=== PATIENT | female | born 1980 | race Caucasian/White ===

== ENCOUNTER 2016-12-19 20:33 | Emergency (ER) | payer SELFPAY ==
[2016-12-20] MEDS ORDERED: OXYCODONE-ACETAMINOPHEN 5-325 MG TABLET PO ONE (01:53)
[2016-12-20] MEDS ORDERED: PROMETHAZINE HCL 25 MG TABLET PO ONE (01:53)
[2016-12-20] MEDS ORDERED: LIDOCAINE 1% INJ-PF (10 MG/ML) 30 ML SDV INJ ONE (01:54)
--- NOTE | 2016-12-20 01:55 | ER Document Report ---
ED Skin Rash/Insect Bite/Abscs - General Chief Complaint: Abscess Stated Complaint: ABSCESS/LEFT HIP Time seen by provider: 01:50 Notes: Patient is a 36-year-old female that comes emergency department for chief complaint of a possible abscess in the left lower abdomen in the fold, symptoms started about a week ago, she noticed it became hardened, tender, red, she has been applying warm compresses and has enlargement. She denies fever, she denies history of diabetes, she has had frequent abscesses in the past. Past medical history of fibromyalgia. TRAVEL OUTSIDE OF THE [place] IN LAST 30 DAYS: No - Related Data Allergies/Adverse Reactions: No Known Allergies Allergy (Verified 12/19/16 21:33) Past Medical History - General Information source: Patient - Social History Smoking Status: Never Smoker Frequency of alcohol use: None Drug Abuse: None Lives with: Family Family History: Reviewed & Not Pertinent Endocrine Medical History: Denies: Hx Diabetes Mellitus Type 1, Hx Diabetes Mellitus Type 2 Renal/ Medical History: Denies: Hx Peritoneal Dialysis Musculoskeltal Medical History: Reports Hx Fibromyalgia Surgical Hx: Negative - Immunizations Immunizations up to date: Yes Hx Diphtheria, Pertussis, Tetanus Vaccination: Yes Review of Systems - Review of Systems Constitutional: No symptoms reported EENT: No symptoms reported Cardiovascular: No symptoms reported Respiratory: No symptoms reported Gastrointestinal: No symptoms reported Genitourinary: No symptoms reported Female Genitourinary: No symptoms reported Musculoskeletal: No symptoms reported Skin: See HPI Hematologic/Lymphatic: No symptoms reported Neurological/Psychological: No symptoms reported Physical Exam - Vital signs Vitals: Temp Pulse Resp BP Pulse Ox 98.1 F 96 17 138/63 H 98 12/19/16 21:33 12/19/16 21:33 12/19/16 21:33 12/19/16 21:33 12/19/16 21:33 Interpretation: Normal - General General appearance: Appears well, Alert In distress: None - HEENT Head: Normocephalic, Atraumatic Eyes: Normal Pupils: PERRL - Respiratory Respiratory status: No respiratory distress Chest status: Nontender Breath sounds: Normal Chest palpation: Normal - Cardiovascular Rhythm: Regular Heart sounds: Normal auscultation Murmur: No - Abdominal Inspection: Normal Distension: No distension Bowel sounds: Normal Tenderness: Nontender Organomegaly: No organomegaly - Back Back: Normal, Nontender - Extremities General upper extremity: Normal inspection, Nontender, Normal color, Normal ROM , Normal temperature General lower extremity: Normal inspection, Nontender, Normal color, Normal ROM , Normal temperature, Normal weight bearing. No: Kimo's sign - Neurological Neuro grossly intact: Yes Cognition: Normal Orientation: AAOx4 Chari Coma Scale Eye Opening: Spontaneous Chari Coma Scale Verbal: Oriented Chari Coma Scale Motor: Obeys Commands [place] Coma Scale Total: 15 Speech: Normal Motor strength normal: LUE, RUE, LLE, RLE Sensory: Normal - Psychological Associated symptoms: Normal affect, Normal mood - Skin Skin Temperature: Warm Skin Moisture: Dry Skin Color: Normal Skin irregularity: Abscess - indurated circular area in the fold of the pannus of the left lower abdomal wall. mild surrounding cellulitis Course - Re-evaluation Re-evalutation: Large abscess drained, irrigated, packed, dressed. Mild surrounding cellulitis, placing on antibiotics. Because of large abscess recommended return or followup in 2 days for repacking, patient and state they have done packing before and ask for it, discussed return precautions in details, patient states understanding and agreement. - Vital Signs Vital signs: Temp Pulse Resp BP Pulse Ox 97.7 F 74 18 105/60 99 12/20/16 02:18 12/20/16 03:21 12/20/16 03:21 12/20/16 03:21 12/20/16 03:21 Procedures - Incision and Drainage left lower abdominal wall Type: Single Anesthetic type: 1% Lidocaine mL's of anesthetic: 8 Blade size: 11 I&D procedure: Sterile dressing applied, Other - surgical cleanser Incision Method: Incision made by scalpel Amount/type of drainage: large amount of purulent drainage, minimal blood Notes: Abscess cleaned with surgical cleanser, incision made with scalpel after 1% lidocaine used for anesthesia, explored, very large amount of purulent material expressed at about 30 mL, packed, dressed Discharge - Discharge Clinical Impression: Abscess Condition: Stable Disposition: HOME, SELF-CARE Additional Instructions: The abscess has been drained and packed, packing needs to be changed in 2 days, I recommend following up with primary care or returning for this unless you do this at home. Clean with soap and water. Keep absorbing dressing over the area. Take doxycycline antibiotic, take pain medication if needed. Return immediately for any concerning or worsening symptoms including fever, spreading redness, etc. Prescriptions: Doxycycline Hyclate 100 mg PO BID #14 capsule Oxycodone HCl/Acetaminophen [Percocet 5-325 mg Tablet] 1 - 2 tab PO Q4H PRN #20 tablet PRN Reason: Forms: Return to Work Referrals: RUFINO OSEGUERA MD [Primary Care Provider] - Follow up as needed
[2016-12-20] MEDS ORDERED: DOXYCYCLINE HYCLATE 100 MG TABLET PO ONE (02:52)
[2016-12-20 03:22] VITALS: BP 105/60
== END 2016-12-20 03:21 | disposition home or self-care (01) ==
LOC: ER 20:33
PROC: 0H97XZZ Drainage of Abdomen Skin, External Approach (ICD-10-PCS; principal; 2016-12-19)
DX: L02.416 Cutaneous abscess of left lower limb (principal)
CPT/HCPCS: 99283; 10060; J3490

== ENCOUNTER 2016-12-22 13:05 | Emergency (ER) | payer SELFPAY ==
[2016-12-22 13:15] VITALS: BP 172/97
--- NOTE | 2016-12-22 13:39 | ER Document Report ---
HPI - HPI Patient complains to provider of: abscess recheck Onset: Other Pain Level: 3 Context: Patient presents emergency department with request for abscess recheck. Patient was evaluated in the emergency department December 19, she received an I & D of an abscess to her left lower abdomen. She reports the site is feeling better not as painful. She is here to have the packing removed. Denies other symptoms such as fever vomiting diarrhea. Patient does report that she usually runs a low temperature of 97 and for her 98.2 is and elevated temperature. Patient is taking her medications as prescribed. Associated Symptoms: None Exacerbated by: Denies Relieved by: Denies Similar symptoms previously: Yes Recently seen / treated by doctor: Yes - REPRODUCTIVE Reproductive: DENIES: : - DERM Skin Color: Normal Past Medical History - General Information source: Patient - Social History Smoking Status: Unknown if Ever Smoked Cigarette use (# per day): No Frequency of alcohol use: None Drug Abuse: None Lives with: Family Family History: Reviewed & Not Pertinent Patient has suicidal ideation: No Patient has homicidal ideation: No Endocrine Medical History: Denies: Hx Diabetes Mellitus Type 1, Hx Diabetes Mellitus Type 2 Renal/ Medical History: Denies: Hx Peritoneal Dialysis Musculoskeltal Medical History: Reports Hx Fibromyalgia Past Surgical History: Reports: Hx Cholecystectomy - Immunizations Immunizations up to date: Yes Hx Diphtheria, Pertussis, Tetanus Vaccination: Yes Vertical Provider Document - CONSTITUTIONAL Agree With Documented VS: Yes Exam Limitations: No Limitations General Appearance: WD/WN, Mild Distress - winces when packing removed - INFECTION CONTROL TRAVEL OUTSIDE OF THE [place] IN LAST 30 DAYS: No - HEENT HEENT: Atraumatic, Normocephalic - NECK Neck: Normal Inspection, Supple - RESPIRATORY Respiratory: Breath Sounds Normal, No Respiratory Distress O2 Sat by Pulse Oximetry: 97 - CARDIOVASCULAR Cardiovascular: Regular Rate - GI/ABDOMEN Gastrointestinal: Abdomen Soft - obese - MUSCULOSKELETAL/EXTREMETIES Musculoskeletal/Extremeties: ROBERTO NGUYEN - NEURO Level of Consciousness: Awake, Alert, Appropriate Motor/Sensory: No Motor Deficit - DERM Integumentary: Warm, Dry Adult Front & Back Diagram: 1 - abscess rechecked, packing removed, dried drainage noted to drsnaa, no new drainage noted,. erythema in a square noted around her abscess site, looks like a reaction to dressing Pt reports she has very sensitive skin. Pt reports she did change the tape. No induration, no drainage from abscess site Course - Re-evaluation Re-evalutation: 12/22/16 14:04 packing removed and replaced. Patient tolerated procedure well although she she did complain of pain during the repacking. Patient drove herself here. She was instructed to monitor site, fu with dr oseguera this week. She was also instructed to continue medications as prescribed and return here if the abscess looks like it was getting worse with s/s of increased erythema induration pain. She verbalized understanding to all instructions. - Vital Signs Vital signs: Temp Pulse Resp BP Pulse Ox 98.2 F 100 22 H 172/97 H 97 12/22/16 13:14 12/22/16 13:14 12/22/16 13:14 12/22/16 13:14 12/22/16 13:14 Discharge - Discharge Clinical Impression: Abscess re-check, Elevated blood pressure reading Condition: Stable Disposition: HOME, SELF-CARE Instructions: [facility]cess ([facility]) Additional Instructions: *You have been treated for an abscess recheck *Take your antibiotics and pain medication as prescribed *Monitor the site for signs of increasing infection such as increasing pain, redness, swelling, warmth *keep the area clean *Follow up with a primary care provider within 3 days for recheck *Return to ED for signs of increasing infection, worsening condition, changes, needs Monitor your blood pressure. Your blood pressure was elevated today. This may be because you were anxious, in pain or because you need medication. It is important to follow up with your primary care provider for full evaluation. Forms: Elevated Blood Pressure Referrals: RUFINO OSEGUERA MD [Primary Care Provider] - Follow up in 3-5 days
== END 2016-12-22 14:00 | disposition home or self-care (01) ==
LOC: ER 13:05
DX: L02.211 Cutaneous abscess of abdominal wall (principal); R03.0 Elevated blood-pressure reading, without diagnosis of hypertension; Z90.49 Acquired absence of other specified parts of digestive tract
CPT/HCPCS: 99282

== ENCOUNTER 2018-03-09 11:04 | Emergency (ER) | payer SELFPAY ==
[2018-03-09 11:10] VITALS: BP 146/84
[2018-03-09] MEDS ORDERED: NAPROXEN 250 MG TABLET PO ONE (12:50)
[2018-03-09] MEDS ORDERED: PREDNISONE 20 MG TABLET PO ONE (12:50)
--- NOTE | 2018-03-09 12:52 | ER Document Report ---
ED General - General Chief Complaint: Shoulder Pain Stated Complaint: SHOULDER PAIN Time Seen by Provider: 03/09/18 12:12 Mode of Arrival: Ambulatory Information source: Patient Notes: 37-year-old female presents with 1 week duration of right shoulder pain. Patient notes that the pain has been worsening gradually over the past week is associated with pain at the end of her clavicle going down her right arm. Patient notes it hurts to move up the arm. Patient denies any significant trauma but admits to the pain worsening when awakening from sleep TRAVEL OUTSIDE OF THE [place] IN LAST 30 DAYS: No - HPI Onset: Last week Onset/Duration: Persistent Quality of pain: Sharp Severity: Mild Pain Level: 1 Associated symptoms: Body/muscle aches Exacerbated by: Movement Relieved by: Denies Similar symptoms previously: No Recently seen / treated by doctor: No - Related Data Allergies/Adverse Reactions: No Known Allergies Allergy (Verified 03/09/18 11:05) Past Medical History - Social History Smoking Status: Current Every Day Smoker Cigarette use (# per day): Yes Chew tobacco use (# tins/day): No Smoking Education Provided: No Family History: Reviewed & Not Pertinent Endocrine Medical History: Denies: Hx Diabetes Mellitus Type 1, Hx Diabetes Mellitus Type 2 Renal/ Medical History: Denies: Hx Peritoneal Dialysis Musculoskeletal Medical History: Reports Hx Fibromyalgia Past Surgical History: Reports: Hx Cholecystectomy - Immunizations Immunizations up to date: Yes Hx Diphtheria, Pertussis, Tetanus Vaccination: Yes Review of Systems - Review of Systems Notes: REVIEW OF SYSTEMS: CONSTITUTIONAL : Denies fever, chills, or sweats. Denies recent illness. EENT: Denies eye, ear, throat, or mouth pain or symptoms. Denies nasal or sinus congestion or discharge. Denies throat, tongue, or mouth swelling or difficulty swallowing. CARDIOVASCULAR: Denies chest pain. Denies palpitations or racing or irregular heart beat. Denies ankle edema. RESPIRATORY: Denies cough, cold, or chest congestion. Denies shortness of breath, difficulty breathing, or wheezing. GASTROINTESTINAL: Denies abdominal pain or distention. Denies nausea, vomiting , or diarrhea. Denies blood in vomitus, stools, or per rectum. Denies black, tarry stools. Denies constipation. GENITOURINARY: Denies difficulty urinating, painful urination, burning, frequency, blood in urine, or discharge. FEMALE GENITOURINARY: Denies vaginal bleeding, heavy or abnormal periods, irregular periods. Denies vaginal discharge or odor. MUSCULOSKELETAL: Right shoulder pain SKIN: Denies rash, lesions or sores. HEMATOLOGIC : Denies easy bruising or bleeding. LYMPHATIC: Denies swollen, enlarged glands. NEUROLOGICAL: Denies confusion or altered mental status. Denies passing out or loss of consciousness. Denies dizziness or lightheadedness. Denies headache. Denies weakness or paralysis or loss of use of either side. Denies problems with gait or speech. Denies sensory loss, numbness, or tingling. Denies seizures. PSYCHIATRIC: Denies anxiety or stress. Denies depression, suicidal ideation, or homicidal ideation. ALL OTHER SYSTEMS REVIEWED AND NEGATIVE. PHYSICAL EXAMINATION: GENERAL: Well-appearing, well-nourished and in no acute distress. HEAD: Atraumatic, normocephalic. EYES: Pupils equal round and reactive to light, extraocular movements intact, conjunctiva are normal. ENT: Nares patent, oropharynx clear without exudates. Moist mucous membranes. NECK: Normal range of motion, supple without lymphadenopathy LUNGS: Breath sounds clear to auscultation bilaterally and equal. No wheezes rales or rhonchi. HEART: Regular rate and rhythm without murmurs ABDOMEN: Soft, nontender, nondistended abdomen. No guarding, no rebound. No masses appreciated. Female : deferred Musculoskeletal: Tenderness upon palpation of the right brachial plexus region. Patient has range of motion tenderness cannot lift greater than 40 before she begins having pain NEUROLOGICAL: Cranial nerves grossly intact. Normal speech, normal gait. Normal sensory, motor exams PSYCH: Normal mood, normal affect. SKIN: Warm, Dry, normal turgor, no rashes or lesions noted. Dictation was performed using [employer] voice recognition software Physical Exam - Vital signs Vitals: Temp Pulse Resp BP Pulse Ox 97.8 F 91 20 146/84 H 98 03/09/18 11:09 03/09/18 11:09 03/09/18 11:09 03/09/18 11:09 03/09/18 11:09 Course - Re-evaluation Re-evalutation: 03/09/18 13:20 Patient's presentation most consistent with impingement of the right brachial plexus, this appears to be muscular skeletal nature, there is no signs of a mass or trauma that would cause this, I will treat him symptomatically with strict follow-up with orthopedics - Vital Signs Vital signs: Temp Pulse Resp BP Pulse Ox 97.8 F 91 20 146/84 H 98 03/09/18 11:09 03/09/18 11:09 03/09/18 11:09 03/09/18 11:09 03/09/18 11:09 Discharge - Discharge Clinical Impression: Brachial plexus dysfunction Condition: Stable Disposition: HOME, SELF-CARE Instructions: Arm Pain, Nonspecific ([facility]) Prescriptions: Naproxen 500 mg PO BID #20 tablet Prednisone [Deltasone 20 mg Tablet] 3 tab PO DAILY 4 Days tablet Forms: Return to Work Referrals: RUFINO OSEGUERA MD [Primary Care Provider] - Follow up as needed
== END 2018-03-09 13:08 | disposition home or self-care (01) ==
LOC: ER 11:04
DX: G54.0 Brachial plexus disorders (principal); M25.511 Pain in right shoulder; F17.210 Nicotine dependence, cigarettes, uncomplicated
CPT/HCPCS: 99283; J7512

== ENCOUNTER 2018-04-04 16:06 | Emergency (ER) | payer SELFPAY ==
[2018-04-04] MEDS ORDERED: HYDROCODONE/ACETAMINOPHEN 5-325 MG TABLET PO ONE (17:36)
[2018-04-04] MEDS ORDERED: SULFAMETHOXAZOLE/TRIMETHOPRIM 800-160 MG TABLET PO ONE (17:36)
[2018-04-04] MEDS ORDERED: LIDOCAINE 1% INJ-PF (10 MG/ML) 30 ML SDV INJ ONE (17:36)
--- NOTE | 2018-04-04 17:38 | ER Document Report ---
ED General - General Chief Complaint: Abscess Stated Complaint: SKIN ISSUE Time Seen by Provider: 04/04/18 17:30 Mode of Arrival: Medic Information source: Patient TRAVEL OUTSIDE OF THE [place] IN LAST 30 DAYS: No - HPI Notes: Patient is a 37-year-old female history of recurrent skin abscess and hidradenitis presents to the emergency department with report of 3 abscesses underneath her breast areas 2 on the left one on the right. She states the one in the right seems to continuously drain and then fill back up. She denies any fever chills. There is no history of diabetes. She states she only has a history of fibromyalgia. The patient denies any chest pain or abdominal pain or nausea or vomiting or numbness or paresthesia. No other skin abscesses otherwise. - Related Data Allergies/Adverse Reactions: No Known Allergies Allergy (Verified 04/04/18 16:07) Past Medical History - General Information source: Patient - Social History Smoking Status: Current Every Day Smoker Frequency of alcohol use: None Drug Abuse: None Lives with: Family Family History: Reviewed & Not Pertinent Endocrine Medical History: Denies: Hx Diabetes Mellitus Type 1, Hx Diabetes Mellitus Type 2 Renal/ Medical History: Denies: Hx Peritoneal Dialysis Musculoskeletal Medical History: Reports Hx Fibromyalgia Past Surgical History: Reports: Hx Cholecystectomy - Immunizations Immunizations up to date: Yes Hx Diphtheria, Pertussis, Tetanus Vaccination: Yes Review of Systems - Review of Systems -: Yes All other systems reviewed and negative Physical Exam - Vital signs Vitals: Temp Pulse Resp BP Pulse Ox 98.3 F 85 16 113/69 98 04/04/18 16:16 04/04/18 16:16 04/04/18 16:16 04/04/18 16:16 04/04/18 16:16 - Notes Notes: In general no apparent distress. HEENT atraumatic normocephalic conjunctiva clear Cardiovascular RRR without m/g/r. Lungs clear to auscultation Examination of the chest shows 2 abscesses on the left underneath the left breast one on the right underneath the right breast. Induration less than 2 cm for each abscess. No evidence for obvious breast tissue involvement or breast tissue mass. Abdomen obese nontender. Course - Re-evaluation Re-evalutation: 04/04/18 18:27 Following discussion of risks, alternatives, and benefits, the patient agreed to incision and drainage of the abscesses. On the left one abscess was more cutaneous with a slight exophytic nature suggesting chronicity which was consistent with the patient's reported history. This abscess was cleaned with Betadine and the top was unroofed and cut off using scissors which allowed drainage from several locations and then this was irrigated. The other abscess under the left breast was Betadine prepped and cleaned with Shur-Clens, then was infiltrated with lidocaine 1% 1 cc, then a #11 scalpel was used to incise the wound and purulent material was sent for culture. The abscess under the right breast was Betadine prepped and cleaned with Shur-Clens and was infiltrated with lidocaine 1% 1 cc then the #11 scalpel was used to incise the wound and purulent material was obtained. All wounds were thoroughly irrigated with saline and then 1 abscess on the left and one abscess on the right were gently packed with quarter inch iodoform gauze. Patient tolerated this well. Complications none. Blood loss negligible. 04/04/18 18:33 We will cover with Bactrim antibiotic and culture was ordered which is pending. - Vital Signs Vital signs: Temp Pulse Resp BP Pulse Ox 98.3 F 85 16 113/69 98 04/04/18 16:16 04/04/18 16:16 04/04/18 16:16 04/04/18 16:16 04/04/18 16:16 Discharge - Discharge Clinical Impression: Abscess Condition: Stable Disposition: HOME, SELF-CARE Instructions: Abscess ([facility]), Oral Narcotic Medication ([facility]), Post Incision and Drainage, Trimethoprim-Sulfa ([facility]) Additional Instructions: Wound packing out in 2 days. Apply warm compresses to the wounds. Follow-up with local surgeon for further evaluation and care. Return to the emergency department in case of fever, severe swelling. Prescriptions: Hydrocodone/Acetaminophen [[place] 5-325 Tablet] 1 each PO Q4HP PRN #20 tablet PRN Reason: Sulfamethoxazole/Trimethoprim [Bactrim Ds Tablet] 2 each PO BID #40 tablet Referrals: RUFINO OSEGUERA MD [Primary Care Provider] - Follow up as needed [facility] [Provider Group] - Follow up as needed
[2018-04-04 19:05] VITALS: BP 135/78
== END 2018-04-04 19:03 | disposition home or self-care (01) ==
LOC: ER 16:06
DX: N61.1 Abscess of the breast and nipple (principal); F17.200 Nicotine dependence, unspecified, uncomplicated
CPT/HCPCS: 99283; 87070; 87205; 87075; 87077; 10061; A6266

== ENCOUNTER 2018-11-05 20:27 | Emergency (ER) | payer SELFPAY ==
--- NOTE | 2018-11-05 22:18 | ER Document Report ---
HPI - HPI Time Seen by Provider: 11/05/18 21:35 Pain Level: 5 Notes: Patient is a 37-year-old female who presents to the emergency department complaining of possible abscess underneath her right breast that started developing a week ago, but swelling worsened over the last couple days. Patient states that she does get these often but not [place] in this area. Patient does not have any history of MRSA, but has had incision and drainage performed in the past. Denies drug allergies. Denies IV drug abuse. No other concerns or complaints. She is eating and drinking without difficulty. She is urinating normally. Denies any headache, fever, URI, sore throat, chest pain, palpitations, syncope, cough, shortness of breath, wheeze, dyspnea, abdominal pain, nausea/vomiting/diarrhea, urinary retention, dysuria, hematuria. - ROS Systems Reviewed and Negative: Yes All other systems reviewed and negative - CONSTITUTIONAL Constitutional: DENIES: Fever - REPRODUCTIVE Reproductive: DENIES: : Past Medical History - Social History Smoking Status: Current Every Day Smoker Chew tobacco use (# tins/day): No Frequency of alcohol use: None Drug Abuse: None Family History: Reviewed & Not Pertinent Patient has suicidal ideation: No Patient has homicidal ideation: No Endocrine Medical History: Denies: Hx Diabetes Mellitus Type 1, Hx Diabetes Mellitus Type 2 Renal/ Medical History: Denies: Hx Peritoneal Dialysis Musculoskeletal Medical History: Reports Hx Fibromyalgia Past Surgical History: Reports: Hx Cholecystectomy - Immunizations Immunizations up to date: Yes Hx Diphtheria, Pertussis, Tetanus Vaccination: Yes Vertical Provider Document - CONSTITUTIONAL Agree With Documented VS: Yes Notes: PHYSICAL EXAMINATION: I was accompanied by female nurseMichelle GENERAL: Well-appearing, well-nourished and in no acute distress. Obese. Chest wall: there is a fluctuant, erythema, warm, tender area noted under the rt breast. No streaks or purulence noted. Indurated area approx [id number] LUNGS: Breath sounds clear to auscultation bilaterally and equal. No wheezes rales or rhonchi. HEART: Regular rate and rhythm without murmurs, rubs, gallops. ABDOMEN: Soft, nontender, nondistended abdomen. No guarding, no rebound. No masses appreciated. Normal bowel sounds present. No CVA tenderness bilaterally. Musculoskeletal: FROM to passive/active. Strength 5+/5. Extremities: No cyanosis, clubbing, or edema b/l. Peripheral pulses 2+. Capillary refill less than 3 seconds. NEUROLOGICAL: Normal speech, normal gait. Normal sensory, motor exams PSYCH: Normal mood, normal affect. SKIN: see above. - INFECTION CONTROL TRAVEL OUTSIDE OF THE [place] IN LAST 30 DAYS: No Course - Re-evaluation Re-evalutation: 11/05/18 Patient is an afebrile, well-hydrated, 37-year-old female who presents to the emergency department with an abscess to her right lower chest wall under the rt breast needing incision and drainage. Vitals are acceptable without significant tachycardia, tachypnea, or hypoxia. PE is otherwise unremarkable. Patient is nontoxic-appearing and is tolerating p.o. without difficulty. Incision and drainage was performed without any complications and packing was placed. Wound dressing was placed and wound instructions reviewed. Wound culture was obtained. No further labs or imaging warranted. Low suspicion for any sepsis, meningitis, SJS, nec fasc, or other systemic emergent condition at this time. Patient to monitor symptoms for any acute changes and seek medical attention if so. Rx for keflex/bactrim and first doses provided today. Recheck with your PCM in 2-3 days. Consider consult with the general surgeon. Return to the ED with any worsening/concerning symptoms as reviewed. Patient is in agreement. - Vital Signs Vital signs: Temp Pulse Resp BP Pulse Ox 98.5 F 96 20 153/85 H 97 11/05/18 20:50 11/05/18 20:50 11/05/18 20:50 11/05/18 20:50 11/05/18 20:50 Procedures - Incision and Drainage Rt lower chest wall, under breast Time completed: 23:05 - accompanied by female coworkerDesiree Type: Simple Anesthetic type: 1% Lidocaine mL's of anesthetic: 10 Blade size: 11 I&D procedure: Iodoform packing placed, Sterile dressing applied, Other - chlorhexadine/saline Incision Method: Incision made by scalpel Amount/type of drainage: abundant purulent Discharge - Discharge Clinical Impression: Abscess Condition: Stable Disposition: HOME, SELF-CARE Instructions: Abscess ([facility]), Cephalexin ([facility]), Post Incision and Drainage, Trimethoprim-Sulfa ([facility]) Additional Instructions: Do not shower or bathe for 24 hours. After 24 hours you may shower but no submersion of the wound under water. Keep the original dressing on the wound for 24 hours unless the drainage soaks through. Change the dressing daily thereafter and use a small amount of triple antibiotic ointment over the open wound. See your PCM in 2-3 days for recheck and continue direction for wound packing. Monitor for any signs of worsening pain or redness, streaks, and/or fever. Return to the ED if noticing any of the above symptoms or as needed. Take medications as directed. Prescriptions: Cephalexin Monohydrate [Keflex 500 mg Capsule] 500 mg PO TID #30 capsule Sulfamethoxazole/Trimethoprim [Bactrim Ds Tablet] 1 each PO BID #20 tablet Forms: Elevated Blood Pressure, Smoking Cessation Education Referrals: REGULO AGUDELO MD [ACTIVE STAFF] - Follow up as needed
[2018-11-05] MEDS ORDERED: SULFAMETHOXAZOLE/TRIMETHOPRIM 800-160 MG TABLET PO ONE (22:23)
[2018-11-05] MEDS ORDERED: CEPHALEXIN 500 MG CAPSULE PO ONE (22:23)
[2018-11-05] MEDS ORDERED: LIDOCAINE 1% INJ-PF (10 MG/ML) 30 ML SDV INJ ONE (22:23)
[2018-11-05] MEDS ORDERED: HYDROCODONE/ACETAMINOPHEN 5-325 MG (6 TAB/ER DISP) PO PRN (23:12)
[2018-11-05 23:47] VITALS: BP 127/74
== END 2018-11-05 23:47 | disposition home or self-care (01) ==
LOC: ER 20:27
DX: N61.1 Abscess of the breast and nipple (principal); F17.200 Nicotine dependence, unspecified, uncomplicated; Z90.49 Acquired absence of other specified parts of digestive tract
CPT/HCPCS: 87070; 87075; 87077; 87205; 99283

== ENCOUNTER 2018-11-09 12:51 | Emergency (ER) | payer SELFPAY ==
[2018-11-09] MEDS ORDERED: OXYCODONE-ACETAMINOPHEN 5-325 MG TABLET PO ONE (14:54)
--- NOTE | 2018-11-09 15:01 | ER Document Report ---
ED Suture/Wound Recheck - General Chief Complaint: Wound Recheck Stated Complaint: WOUND RECHECK Time Seen by Provider: 11/09/18 14:54 Mode of Arrival: Ambulatory Information source: Patient Notes: 37-year-old female presented to ED for removal of packing and repacking to abscess under the right breast. She had an I&D completed on 11/05/2018 and was instructed to return to the ED for changing of the packing. Patient is alert oriented respirations regular and unlabored speaking in full sentences and walks with a even steady gait. TRAVEL OUTSIDE OF THE [place] IN LAST 30 DAYS: No - HPI Previous ED treatment: I&D of abscess Antibiotics given previously: Prescription Quality of pain: Sharp Severity: Moderate Pain Level: 4 Symptoms since procedure: Drainage Exacerbated by: Movement Relieved by: Denies - Related Data Allergies/Adverse Reactions: No Known Allergies Allergy (Verified 11/09/18 12:58) Past Medical History - General Information source: Patient - Social History Smoking Status: Current Every Day Smoker Cigarette use (# per day): Yes - Half pack a day Smoking Education Provided: Yes Frequency of alcohol use: None Drug Abuse: None Lives with: Family Family History: Reviewed & Not Pertinent Patient has suicidal ideation: No Patient has homicidal ideation: No - Past Medical History Cardiac Medical History: Reports: None Pulmonary Medical History: Reports: None EENT Medical History: Reports: None Neurological Medical History: Reports: None Endocrine Medical History: Reports: None Renal/ Medical History: Reports: None Malignancy Medical History: Reports: None GI Medical History: Reports: None Musculoskeletal Medical History: Reports Hx Fibromyalgia Skin Medical History: Reports Hx Cellulitis Psychiatric Medical History: Reports: None Traumatic Medical History: Reports: None Infectious Medical History: Reports: None Past Surgical History: Reports: Hx Cholecystectomy - Immunizations Immunizations up to date: Yes Hx Diphtheria, Pertussis, Tetanus Vaccination: Yes Review of Systems - Review of Systems Constitutional: No symptoms reported EENT: No symptoms reported Cardiovascular: No symptoms reported Respiratory: No symptoms reported Gastrointestinal: No symptoms reported Genitourinary: No symptoms reported Female Genitourinary: No symptoms reported Musculoskeletal: No symptoms reported Skin: Other - Abscess needs packing removed and replaced Hematologic/Lymphatic: No symptoms reported Neurological/Psychological: No symptoms reported -: Yes All other systems reviewed and negative Physical Exam - Vital signs Vitals: Temp Pulse Resp BP Pulse Ox 98.1 F 83 18 147/88 H 100 11/09/18 13:08 11/09/18 13:08 11/09/18 13:08 11/09/18 13:08 11/09/18 13:08 Interpretation: Normal - General General appearance: Appears well, Alert - HEENT Head: Normocephalic, Atraumatic Eyes: Normal Pupils: PERRL - Respiratory Respiratory status: No respiratory distress Chest status: Nontender Breath sounds: Normal Chest palpation: Normal - Cardiovascular Rhythm: Regular Heart sounds: Normal auscultation Murmur: No - Abdominal Inspection: Normal Distension: No distension Bowel sounds: Normal Tenderness: Nontender Organomegaly: No organomegaly - Back Back: Normal, Nontender - Extremities General upper extremity: Normal inspection, Nontender, Normal color, Normal ROM, Normal temperature General lower extremity: Normal inspection, Nontender, Normal color, Normal ROM, Normal temperature, Normal weight bearing. No: Kimo's sign - Neurological Neuro grossly intact: Yes Cognition: Normal Orientation: AAOx4 Chari Coma Scale Eye Opening: Spontaneous Donner Coma Scale Verbal: Oriented Donner Coma Scale Motor: Obeys Commands Chari Coma Scale Total: 15 Speech: Normal Motor strength normal: LUE, RUE, LLE, RLE Sensory: Normal - Psychological Associated symptoms: Normal affect, Normal mood - Skin Skin Temperature: Warm Skin Moisture: Dry Skin Color: Normal Skin irregularity: Abscess - Needs packing removed and replaced under right breast Character of irregularity: negative: Erythematous Irregularity with: Tenderness. negative: Inflammation Course - Re-evaluation Re-evalutation: 11/09/18 21:45 Packing was removed and replaced with quarter inch iodoform gauze. Wound was irrigated with 50 cc of normal saline before repacking. Patient was treated with Percocet 2 pills of 5/325 for the pain and discharged home with . Patient was instructed to replace the packing in 3 days or return to the ED for repacking. states he knows how to do the repacking and he can do it at home. - Vital Signs Vital signs: Temp Pulse Resp BP Pulse Ox 98.1 F 73 16 137/92 H 98 11/09/18 13:08 11/09/18 15:19 11/09/18 15:19 11/09/18 15:19 11/09/18 15:19 Discharge - Discharge Clinical Impression: abscess recheck for packing Condition: Stable Disposition: HOME, SELF-CARE Instructions: Family Physicians / Practices Additional Instructions: ABSCESS: You have an abscess (boil). This a pus-forming infection, usually due to staph. Some boils may be left to drain on their own, but most require lancing. From the time the tender lump first appears, it may be three or four days before the abscess is ready to lior. Local heat and rest help at this stage of treatment. An antibiotic may prevent spread of the infection. Once the abscess is opened, packing may be placed into it. This is done so pus is not sealed inside by premature closure of the cavity. The packing will be removed at your follow-up visit or you may be advised to remove it yourself at home. Sometimes this packing must be replaced a few times during healing. The wound will heal with surprisingly little scar. Depending on the size and location of an abscess, healing can take one to four weeks. You may shower and wash the area around the incision site two or three times a day. Antibiotics may be prescribed, but are usually not necessary after an abscess has been drained. If you develop fever, chills, worsening pain, or increasing swelling in the area, call the doctor or return immediately. ORAL NARCOTIC MEDICATION: You have been given 2 percocet 5/325 in the ed for pain control. This medication is a narcotic. It's best taken with food, as nausea can result if taken on an empty stomach. Don't operate machinery or drive within six hours of taking this medication. Do not combine this medicine with alcohol, or with any medication which can cause sedation (such as cold tablets or sleeping pills) unless you get permission from the physician. Narcotics tend to cause constipation. If possible, drink plenty of fluids and eat a diet high in fiber and fruits. Be aware that this needs to go against your amount of Tylenol for the day as this is the equivalent of 2 Tylenol in these 2 Percocets Acetaminophen Acetaminophen may be taken for pain relief or fever control. It's much safer than aspirin, offering a wider range of "safe" dosages. It is safe during . Some brand names are Tylenol, Panadol, Datril, Anacin 3, Tempra, and Liquiprin. Acetaminophen can be repeated every four hours. The following are maximum recommended dosages: WEIGHT Dose Drops Elixir Chewable(80mg) (LBS.) drprs=droppers tsp=teaspoon 6 40 mg .4 ml (1/2) 6-11 80 mg .8 ml (full) 1/2 tsp 1 tab 12-16 120 mg 1 1/2 drprs 3/4 tsp 1 1/2 tabs 17-23 160 mg 2 drprs 1 tsp 2 tabs 24-30 240 mg 3 drprs 1 1/2 tsp 3 tabs 30-35 320 mg 2 tsp 4 tabs 36-41 360 mg 2 1/4 tsp 4 1/2 tabs 42-47 400 mg 2 1/2 tsp 5 tabs 48-53 480 mg 3 tsp 6 tabs 54-59 520 mg 3 1/4 tsp 6 1/2 tabs 60-64 560 mg 3 1/2 tsp 7 tabs 65-70 600 mg 3 3/4 tsp 7 1/2 tabs 71-76 640 mg 4 tsp 8 tabs 77-82 720 mg 4 1/2 tsp 9 tabs 83-88 800 mg 5 tsp 10 tabs >89 pounds or adults 650 mg to 900 mg Acetaminophen can be repeated every four hours. Maximum daily dose not to exceed 4000 mg. These maximum recommended dosages are slightly higher than the dosages written on the product container, but these dosages are very safe and well below the toxic dosage for acetaminophen. Ibuprofen Ibuprofen is an excellent, safe drug for pain control. In addition, it has potent antiinflammatory effects which are beneficial, especially in the treatment of injuries, arthritis, or tendonitis. It's best to take ibuprofen with food. Persons with ulcer disease or allergy to aspirin should notify their physician of this before taking ibuprofen. Take the medication exactly as prescribed. Don't take additional doses unless instructed to do so by your doctor. If you develop wheezing, shortness of breath, hives, faintness, stomach pain, vomiting, or dark black stools, ret urn for re-evaluation at once. FOLLOW-UP CARE: Most simple abscesses will not require a follow up visit. If you had packing placed in the abscess, remove it as instructed by the physician. If you have been referred to a physician for follow-up care, call the physicians office for an appointment as you were instructed or within the next two days. If you experience worsening or a significant change in your symptoms, return to the Emergency Department at any time for re-evaluation. Forms: Elevated Blood Pressure
[2018-11-09 15:19] VITALS: BP 137/92
== END 2018-11-09 15:29 | disposition home or self-care (01) ==
LOC: ER 12:51
DX: Z48.01 Encounter for change or removal of surgical wound dressing (principal); N61.1 Abscess of the breast and nipple; F17.210 Nicotine dependence, cigarettes, uncomplicated
CPT/HCPCS: 99282

== ENCOUNTER 2019-05-06 11:18 | Emergency (ER) | payer SELFPAY ==
--- NOTE | 2019-05-06 13:22 | RADIOLOGY REPORT (SQ) ---
EXAM DESCRIPTION: U/S EXTREMITY NONVASCULAR LTD COMPLETED DATE/TIME: 05/06/2019 1:10 pm REASON FOR STUDY: RIGHT SIDE EVAL FOR ABSCESS COMPARISON: None. TECHNIQUE: Dynamic and static grayscale images acquired of the localized site of clinical concern an d recorded on PACS. Additional selected color Doppler and spectral images recorded. SITE OF CONCERN: Right trunk/abdominal wall LIMITATIONS: None. FINDINGS: Targeted ultrasound examination of the patient identified area of abnormality about the ri ght trunk/abdominal wall reveals a superficial, complex subcutaneous fluid collection measuring 2.7 x 1.7 x 1.5 cm concerning for abscess. IMPRESSION: Targeted ultrasound examination of the patient identified area of abnormality about the right trunk/abdominal wall reveals a superficial, complex subcutaneous fluid collection measuring 2.7 x 1.7 x 1.5 cm concerning for abscess. TECHNICAL DOCUMENTATION: JOB ID: [id number] [employer]- All Rights Reserved Reading location - IP/workstation name: [id number]
--- NOTE | 2019-05-06 13:34 | ER Document Report ---
HPI - HPI Patient complains to provider of: abscess Time Seen by Provider: 05/06/19 11:43 Onset: Other - 2 weeks Onset/Duration: Persistent Severity: Mild Pain Level: 1 Context: This 38-year-old female presents emergency department with complaints of abscess on the right side of her trunk. Patient reports symptoms for the past 2 weeks. Reports she is had abscesses in the past. Reports she is placed heating pad on the area warm packs without relief of symptoms. Denies history of MRSA. Denies fever vomiting diarrhea. Associated Symptoms: None Exacerbated by: Denies Relieved by: Denies Similar symptoms previously: Yes Recently seen / treated by doctor: No - CONSTITUTIONAL Constitutional: DENIES: Fever, Chills - REPRODUCTIVE Reproductive: DENIES: : Past Medical History - General Information source: Patient - Social History Smoking Status: Unknown if Ever Smoked Cigarette use (# per day): Yes Frequency of alcohol use: None Drug Abuse: None Lives with: Family Family History: Reviewed & Not Pertinent Patient has suicidal ideation: No Patient has homicidal ideation: No Endocrine Medical History: Denies: Hx Diabetes Mellitus Type 1, Hx Diabetes Mellitus Type 2 Renal/ Medical History: Denies: Hx Peritoneal Dialysis Musculoskeletal Medical History: Reports Hx Fibromyalgia Skin Medical History: Reports Hx Cellulitis Past Surgical History: Reports: Hx Cholecystectomy - Immunizations Immunizations up to date: Yes Hx Diphtheria, Pertussis, Tetanus Vaccination: Yes Vertical Provider Document - CONSTITUTIONAL Agree With Documented VS: Yes Exam Limitations: No Limitations General Appearance: WD/WN, Mild Distress - Winces when area is palpated - INFECTION CONTROL TRAVEL OUTSIDE OF THE [place] IN LAST 30 DAYS: No - HEENT HEENT: Atraumatic, Normocephalic - NECK Neck: Supple - RESPIRATORY Respiratory: Breath Sounds Normal, No Respiratory Distress - CARDIOVASCULAR Cardiovascular: Regular Rate - GI/ABDOMEN Gastrointestinal: Abdomen Soft - BACK Back: Normal Inspection - MUSCULOSKELETAL/EXTREMETIES Musculoskeletal/Extremeties: ROBERTO NGUYEN - NEURO Level of Consciousness: Awake, Alert, Appropriate Motor/Sensory: No Motor Deficit - DERM Integumentary: Warm, Dry, Abscess - Abscess noted to right side of trunk under adipose fold no induration slight redness no pustule no fluctuance. Adult Front & Back Diagram: 1 - Abscess on right side of trunk under adipose fold Course - Re-evaluation Re-evalutation: 05/06/19 13:36 This 38-year-old female presents the emergency department with complaints of abscess on the right side of her body right trunk. Patient reports is been there for the past 2 weeks. Abscess is likely located under a large adipose fold. No induration no fluctuance slight erythema noted very tender to palpate. Ultrasound obtained. Small abscess noted. The abscess is not ready to be open. She will be placed on antibiotics. She will be instructed to apply warm packs and return to the emergency department for worsening symptoms. Extremity Ultrasound 05/06/19 11:54 IMPRESSION: Targeted ultrasound examination of the patient identified area of abnormality about the right trunk/abdominal wall reveals a superficial, complex subcutaneous fluid collection measuring 2.7 x 1.7 x 1.5 cm concerning for abscess. 05/06/19 19:04 - Vital Signs Vital signs: Temp Pulse Resp BP Pulse Ox 98.6 F 94 18 141/86 H 95 05/06/19 11:23 05/06/19 11:23 05/06/19 11:23 05/06/19 11:23 05/06/19 11:23 - Diagnostic Test Radiology reviewed: Image reviewed, Reports reviewed Discharge - Discharge Clinical Impression: Abscess Condition: Stable Disposition: HOME, SELF-CARE Instructions: Abscess ([facility]), Trimethoprim-Sulfa ([facility]) Additional Instructions: *You have been treated for an abscess *The abscess is not ready to be lanced. *Take medication as prescribed *Monitor the site for signs of increasing infection such as increasing pain, redness, swelling, warmth *Warm packs *Follow up with a primary care provider within one week *Return to ED for signs of increasing infection, worsening condition, changes, needs Monitor your blood pressure. Your blood pressure was elevated today. This may be because you were anxious, in pain or because you need medication. It is important to follow up with your primary care provider for full evaluation. Prescriptions: Sulfamethoxazole/Trimethoprim [Bactrim Ds Tablet] 1 each PO BID #20 tablet Forms: Elevated Blood Pressure
[2019-05-06 14:44] VITALS: BP 139/79
== END 2019-05-06 14:56 | disposition home or self-care (01) ==
LOC: ER 11:18
DX: L02.211 Cutaneous abscess of abdominal wall (principal); Z90.49 Acquired absence of other specified parts of digestive tract
CPT/HCPCS: 76882; 99283

== ENCOUNTER 2019-05-11 10:21 | Emergency (ER) | payer SELFPAY ==
[2019-05-11] MEDS ORDERED: OXYCODONE-ACETAMINOPHEN 5-325 MG TABLET PO ONE (11:14)
--- NOTE | 2019-05-11 11:14 | ER Document Report ---
ED Medical Screen (RME) - General Chief Complaint: Abscess Stated Complaint: POSSIBLE ABSCESS Time Seen by Provider: 05/11/19 11:09 Mode of Arrival: Ambulatory Information source: Patient Notes: This 38-year-old female presents to the emergency department with right sided abscess. Patient was evaluated on 05/06 for same symptoms but the area was not indurated no fluctuance. She was treated with Septra at that time. She reports is been keeping a real close eye on it warm packs taking antibiotics as prescribed. at bedside reports it turned red overnight and is now draining. I have greeted and performed a rapid initial assessment of this patient. A comprehensive ED assessment and evaluation of the patient, analysis of test results and completion of the medical decision making process will be conducted by additional ED providers. Dictation of this chart was performed using voice recognition software; therefore, there may be some unintended grammatical errors. TRAVEL OUTSIDE OF THE [place] IN LAST 30 DAYS: No - Related Data Allergies/Adverse Reactions: No Known Allergies Allergy (Verified 05/11/19 10:25) Past Medical History - Social History Family history: CAD, Hypertension Endocrine Medical History: Denies: Hx Diabetes Mellitus Type 1, Hx Diabetes Mellitus Type 2 Renal/ Medical History: Denies: Hx Peritoneal Dialysis Musculoskeltal Medical History: Reports Hx Fibromyalgia Skin Medical History: Reports Hx Cellulitis Past Surgical History: Reports: Hx Cholecystectomy - Immunizations Immunizations up to date: Yes Hx Diphtheria, Pertussis, Tetanus Vaccination: Yes Physical Exam - Vital signs Vitals: Temp Pulse Resp BP Pulse Ox 98.3 F 93 20 137/108 H 94 05/11/19 10:05/11/19 10:05/11/19 10:05/11/19 10:05/11/19 10:26 Course - Vital Signs Vital signs: Temp Pulse Resp BP Pulse Ox 98.3 F 93 20 137/108 H 94 05/11/19 10:05/11/19 10:05/11/19 10:05/11/19 10:05/11/19 10:26
[2019-05-11] MEDS ORDERED: CLINDAMYCIN 900 MG/D5W RTU 900 MG/50 ML RTUPB IV ONE (11:30)
[2019-05-11] MEDS ORDERED: MORPHINE SULFATE 10 MG/ML INJ IV ONE ×2 (11:31→14:29)
[2019-05-11] MEDS ORDERED: ONDANSETRON HCL INJ/PF 4 MG/2 ML SDV IV ONE (11:31)
[2019-05-11] MEDS ORDERED: LIDOCAINE 1% INJ-PF (10 MG/ML) 30 ML SDV INJ ONE (11:36)
[2019-05-11 12:12] LABS: ABSOLUTE BASOPHILS # (AUTO) 0.1 10^3/uL (0.0-0.2); ABSOLUTE EOSINOPHILS # (AUTO) 0.4 10^3/uL (0.0-0.6); ABSOLUTE LYMPHOCYTES (AUTO) 2.2 10^3/uL (0.5-4.7); ABSOLUTE MONOCYTES (AUTO) 0.5 10^3/uL (0.1-1.4); ABSOLUTE NEUT (AUTO) 8.7 10^3/uL (1.7-8.2); BASOPHILS % (AUTO) 0.7 % (0-2); EOSINOPHILS % (AUTO) 3.6 % (0-6); HEMATOCRIT 39.8 % (36.0-47.0); HEMOGLOBIN 13.3 g/dL (12.0-15.5); LYMPHOCYTES % (AUTO) 18.6 % (13-45); MEAN CORPUSCULAR HEMOGLOBIN 30.3 pg (27.0-33.4); MEAN CORPUSCULAR HGB CONC 33.5 g/dL (32.0-36.0); MEAN CORPUSCULAR VOLUME 91 fl (80-97); MONOCYTES % (AUTO) 3.8 % (3-13); PLATELET COUNT 425 10^3/uL (150-450); RED CELL DISTRIBUTION WIDTH 15.4 % (11.5-14.0); SEGMENTED NEUTROPHILS % (AUTO) 73.3 % (42-78); TOTAL CELLS COUNTED % (AUTO) 100 %; WHITE BLOOD COUNT 11.8 10^3/uL (4.0-10.5)
[2019-05-11 12:32] LABS: ANION GAP 9 (5-19); BLOOD UREA NITROGEN 15 mg/dL (7-20); CALCIUM 9.6 mg/dL (8.4-10.2); CARBON DIOXIDE 27 mmol/L (22-30); CHLORIDE 101 mmol/L (98-107); GLUCOSE 166 mg/dL (75-110); POTASSIUM 4.8 mmol/L (3.6-5.0)
--- NOTE | 2019-05-11 14:37 | ER Document Report ---
ED Skin Rash/Insect Bite/Abscs - General Chief Complaint: Abscess Stated Complaint: POSSIBLE ABSCESS Time Seen by Provider: 05/11/19 11:09 Mode of Arrival: Ambulatory Notes: 38-year-old female presents to the ER complaining of right-sided chest wall pain from an abscess. Patient states she is had this over a week she is been seen for this before and placed on antibiotics. She has a history of abscesses in the past. She states she is had subjective chills. Denies fevers. Complains of burning aching pain in the right portion of her chest from a draining wound. It is on the skin fold of her axilla and breast. She has had skinfold abscesses before she denies any falls or trauma. States it is been draining some purulent material. Movement makes the pain worse. TRAVEL OUTSIDE OF THE [place] IN LAST 30 DAYS: No - Related Data Allergies/Adverse Reactions: No Known Allergies Allergy (Verified 05/11/19 10:25) Past Medical History - General Information source: Patient - Social History Smoking Status: Unknown if Ever Smoked Family History: Reviewed & Not Pertinent Patient has suicidal ideation: No Patient has homicidal ideation: No Endocrine Medical History: Denies: Hx Diabetes Mellitus Type 1, Hx Diabetes Mellitus Type 2 Renal/ Medical History: Denies: Hx Peritoneal Dialysis Musculoskeletal Medical History: Reports Hx Fibromyalgia Skin Medical History: Reports Hx Cellulitis Past Surgical History: Reports: Hx Cholecystectomy - Immunizations Immunizations up to date: Yes Hx Diphtheria, Pertussis, Tetanus Vaccination: Yes Review of Systems - Review of Systems Constitutional: Chills. denies: Fever EENT: denies: Throat pain Cardiovascular: denies: Chest pain, Dyspnea Respiratory: denies: Short of breath Gastrointestinal: denies: Abdominal pain, Diarrhea, Nausea, Vomiting Genitourinary: denies: Dysuria, Hematuria Musculoskeletal: denies: Back pain Hematologic/Lymphatic: Other - Right sided abscess -: Yes All other systems reviewed and negative Physical Exam - Vital signs Vitals: Temp Pulse Resp BP Pulse Ox 98.3 F 93 20 137/108 H 94 05/11/19 10:26 05/11/19 10:26 05/11/19 10:26 05/11/19 10:26 05/11/19 10:26 - Notes Notes: GENERAL_APPEARANCE: well_nourished but morbidly obese, alert, cooperative VITALS: reviewed, see vital signs table. HEAD: no_swelling\tenderness on the head. EYES: conjunctiva_clear. NOSE: no_nasal_discharge. MOUTH: (-)decreased moisture. THROAT: no_tonsilar_inflammation, no_airway_obstruction. no_lymphadenopathy NECK: supple, no_neck_tenderness, (-)thyromegaly. BACK: no_back_tenderness. CHEST_WALL: Right chest mid axillary line on 1 of the skin folds, 10 cm area of redness and induration is fluctuance noted LUNGS: no_wheezing, no_rales, no_rhonchi, (-)accessory muscle use, good air exchange bilateral. HEART: normal_rate, normal_rhythm, normal_S1, normal_S2, (-)S3, (-)S4, no_murmur, no_rub. ABDOMEN: normal_BS, soft, no_abd_tenderness, (-)guarding, (-)rebound, no_organomegaly, no_abd_masses. EXTREMITIES: good pulses in all_extremities, no_swelling\tenderness in the extremities, no_edema. SKIN: warm, dry, good_color, no_rash. MENTAL_STATUS: speech_clear, oriented_X_3, normal_affect, responds_approp riately to questions. Course - Re-evaluation Re-evalutation: 05/11/19 14:33 Patient had a chest wall abscess due to her morbid obesity and that 1 of the skin folds in the right chest in the mid axillary line. This was incised and drained and packed with iodoform packing. Patient tolerated this well she was given IV dose of clindamycin here white count is 11 she does not appear septic. We will change her antibiotic to clindamycin for home and give her something for pain we did give her morphine here. Recommend packing removed in 2 days she may return here for this her primary care. Patient is okay with plan will be d ischarged home. - Vital Signs Vital signs: Temp Pulse Resp BP Pulse Ox 98.3 F 93 20 137/108 H 94 05/11/19 10:26 05/11/19 10:26 05/11/19 10:26 05/11/19 10:26 05/11/19 10:26 - Laboratory Result Diagrams: 05/11/19 11:55 05/11/19 11:55 Laboratory results interpreted by me: 05/11/19 05/11/19 11:55 11:55 WBC 11.8 H RDW 15.4 H Absolute Neuts (auto) 8.7 H Glucose 166 H Procedures - Incision and Drainage Right Mid- Chest Time completed: 14:34 Type: Simple Anesthetic type: 1% Lidocaine Blade size: 11 I&D procedure: Shurclens applied Incision Method: Incision made by scalpel Amount/type of drainage: 15 Notes: 05/11/19 14:34 2 cm incision was made with copious amounts of pus. Loculations were broke up and packed with quarter inch iodoform packing. Patient tolerated this well Discharge - Discharge Clinical Impression: Abscess Condition: Good Disposition: HOME, SELF-CARE Instructions: Abscess ([facility]) Prescriptions: Clindamycin HCl [Cleocin 300 mg Capsule] 300 mg PO QID #30 capsule Hydrocodone/Acetaminophen [[place] 5-325 mg Tablet] 1 tab PO Q4H PRN #21 tablet PRN Reason: Forms: Return to Work
[2019-05-11 15:19] VITALS: BP 136/85
== END 2019-05-11 15:30 | disposition home or self-care (01) ==
LOC: ER 10:21
DX: L02.213 Cutaneous abscess of chest wall (principal); E66.01 Morbid (severe) obesity due to excess calories; R68.83 Chills (without fever)
CPT/HCPCS: 36415; 87070; 87205; 85025; 87075; 80048; 10060; A6266; J3490 ×2; J2270; J2405; 87077; 96365; 96375; 96376; 99283

== ENCOUNTER 2020-02-01 05:28 | Day surgery (SDC) | payer BC ==
[~2020-02-01 05:28] MED LIST: CEFAZOLIN 2 GM/D5W RTU 2 GM/50 ML RTUPB IV PRN; DEXAMETHASONE SOD PHOSPHATE INJ 4 MG/1 ML VIAL ONE; GLYCOPYRROLATE 1 MG/5 ML VIAL ONE; LACTATED RINGERS 1000 ML IV PRN; LIDOCAINE 0.5% INJ-PF (5 MG/ML) 50 ML SDV SUBCUT PRN; NEOSTIGMINE METHYLSULFATE 10 MG/10 ML VIAL ONE; ONDANSETRON HCL INJ/PF 4 MG/2 ML SDV ONE
[2020-02-01] MEDS ORDERED: CEFAZOLIN INJ 1 GM VIAL ONE (05:47)
--- NOTE | 2020-02-01 06:07 | RADIOLOGY REPORT (SQ) ---
EXAM DESCRIPTION: [facility]: XR CHEST 1 VIEW CLINICAL HISTORY: 39 years Female; PRE OP; COMPARISON: 02/05/2015 FINDINGS: Lungs: Lungs are clear, with no focal infiltrate, pneumothorax, or pleural effusion. Mediastinum: Mediastinum is within normal limits for this positioning. Bones: Bony structures are unremarkable. IMPRESSION: 1. No acute pulmonary findings.
[2020-02-01 07:00] LABS: ABSOLUTE EOSINOPHILS # (AUTO) 0.4 10^3/uL (0.0-0.6); ABSOLUTE LYMPHOCYTES (AUTO) 3.1 10^3/uL (0.5-4.7); ABSOLUTE MONOCYTES (AUTO) 0.5 10^3/uL (0.1-1.4); BASOPHILS % (AUTO) 0.3 % (0-2); EOSINOPHILS % (AUTO) 3.7 % (0-6); HEMATOCRIT 41.5 % (36.0-47.0); LYMPHOCYTES % (AUTO) 28.3 % (13-45); MEAN CORPUSCULAR HEMOGLOBIN 31.1 pg (27.0-33.4); MEAN CORPUSCULAR HGB CONC 33.6 g/dL (32.0-36.0); MEAN CORPUSCULAR VOLUME 93 fl (80-97); MONOCYTES % (AUTO) 4.6 % (3-13); PLATELET COUNT 410 10^3/uL (150-450); RED BLOOD COUNT 4.48 10^6/uL (3.72-5.28); RED CELL DISTRIBUTION WIDTH 15.5 % (11.5-14.0); SEGMENTED NEUTROPHILS % (AUTO) 63.1 % (42-78); TOTAL CELLS COUNTED % (AUTO) 100 %; WHITE BLOOD COUNT 11.1 10^3/uL (4.0-10.5)
[2020-02-01 07:01] LABS: ANION GAP 9 (5-19); BLOOD UREA NITROGEN 13 mg/dL (7-20); CARBON DIOXIDE 24 mmol/L (22-30); CHLORIDE 104 mmol/L (98-107); GLUCOSE 154 mg/dL (75-110); POTASSIUM 4.2 mmol/L (3.6-5.0)
[2020-02-01] MEDS ORDERED: FENTANYL CITRATE INJ/PF 100 MCG/2 ML AMPUL ONE (07:09)
[2020-02-01] MEDS ORDERED: PROPOFOL INJ 200 MG/20 ML VIAL IV ONE (07:10)
[2020-02-01] MEDS ORDERED: MIDAZOLAM 2 MG/2 ML INJ ONE (07:10)
[2020-02-01] MEDS ORDERED: BUPIVACAINE HCL 0.5 % INJ/PF 30 ML SDV ONE (07:57)
[2020-02-01] MEDS ORDERED: DIPHENHYDRAMINE HCL 50 MG/ML VIAL IV PRN (08:07)
[2020-02-01] MEDS ORDERED: OXYCODONE-ACETAMINOPHEN 5-325 MG TABLET PO PRN ×3 (08:07→09:17)
[2020-02-01] MEDS ORDERED: FENTANYL CITRATE INJ/PF 100 MCG/2 ML AMPUL IV PRN ×3 (08:07)
[2020-02-01] MEDS ORDERED: PROMETHAZINE HCL INJ 25 MG/1 ML VIAL IV PRN ×2 (08:07)
[2020-02-01] MEDS ORDERED: MEPERIDINE HCL/PF INJ 25 MG/1 ML DISP.SYRIN IV PRN (08:07)
[2020-02-01] MEDS ORDERED: MORPHINE SULFATE 10 MG/ML INJ IV PRN (09:17)
--- NOTE | 2020-02-01 09:22 | Operative Report ---
Operative Report DATE OF SURGERY: 02/01/20 PREOPERATIVE DIAGNOSIS: Right upper extremity ulnar neuropathy POSTOPERATIVE DIAGNOSIS: Same OPERATION: 1. Right in situ cubital tunnel release. 2. Right carpal tunnel release with Guyon's canal release SURGEON: HARRIET SAMUEL ANESTHESIA: GA COMPLICATIONS: None ESTIMATED BLOOD LOSS: Normal PROCEDURE: Indication for above procedure: 39-year-old female with numbness and tingling along with weakness in the right upper extremity. Patient had electrodiagnostic testing consistent with right ulnar neuropathy which was severe in nature with EMG changes noted. Given the severity of patient's electrodiagnostic testing decision was made to proceed with operative intervention which include right cubital tunnel release with Guyon's canal release. Risk and benefits were explained patient verbalized understanding consented for surgical procedure. Procedure In Detail: Patient was seen and evaluated in the preoperative holding area. The RIGHT upper extremity was initialized and marked. Patient received 2g of Ancef IV for bacterial prophylaxis. Patient was taken back to the operative room where transferred to the operative table and placed under general anesthesia. Once they were adequately anesthetized a nonsterile tourniquet was placed on the upper extremity. A surgical team debriefing was performed ensuring all instrumentation was available, the surgical procedure was discussed with possible concerns reviewed. The upper extremity was prepped with ChloraPrep and draped in a sterile fashion. A timeout was done identifying correct patient, procedure and extremity everyone in attendance agree with this and verbalized no concerns. The extremity was exsanguinated the tourniquet was inflated to 250 mmHg. Longitudinal skin incision was made over the cubital tunnel. Branch of the medial antebrachial cutaneous nerve was identified and retracted. Pires's ligament was released to identify the deep ulnar nerve. Once adequately released there was evidence of a anconeus epitrochlear muscle which was further released and excised. Ulnar nerve was then neurolysed from Pires's ligament to release the fascia overlying the FCU aponeurosis. Deep fascial bands of the FCU were identified and released past the first motor branch. First motor branch was further neurolysed to relieve any additional impingement. Finger dissection was then performed distally to ensure adequate release. The ulnar nerve was then neurolysed proximally releasing the triceps fascia at the level of the cubital tunnel was notable swelling and hourglassing of the nerve at this level. Additional fascial bands were released proximally. Finger dissection was then performed proximally to ensure adequate release with no evidence of compression. Elbow was placed through range of motion there was no evidence of subluxation or compression proximally or distally. Any peripheral veins were coagulated with bipolar cautery. Wound was copiously irrigated with normal saline. Deep soft tissue was closed with 3-0 Monocryl suture. Skin was closed with horizontal mattress 4-0 nylon. 20 cc of 0.5% Marcaine without epinephrine was injected for postoperative pain control. Attention then turned to carpal tunnel. Posterior skin incision was made just proximal to Urena's cardinal line in line with the radial border of the ring finger. Blunt dissection was performed through the palmar adipose and palmar fascia until the transverse carpal ligament was identified. Transverse carpal ligament was then released to the adipose protecting the superficial palmar arch. Median nerve was identified with mild compression at this level. Transverse carpal ligament was then released proximally including volar antebrachial fascia. Guyon's canal was identified ulnarly and the flexor retinaculum was released to further expose the ulnar neurovascular bundle. This was then released proximally and distally to ensure no residual external compression of the ulnar nerve at this distal level. Any peripheral veins were coagulated bipolar cautery. Wound was copiously irrigated with normal saline. Skin was closed with horizontal mattress and simple 4-0 nylon suture. 10 cc of 0.5% Marcaine was injected for postoperative pain control. Wound was dressed with Xeroform 4 x 4's and a soft dressing. Tourniquet was deflated. Patient had normal peripheral perfusion. Sponge counts, instrument counts, needle counts were correct. Patient was then awoken from anesthesia. Transferred from the operating room table to the operating room stretcher. There was no intraoperative complications patient tolerated procedure well stable to PACU. Postop plan: Patient follow in the office in 2 weeks for wound check. Will begin range of motion immediately but no heavy lifting or weightbearing.
--- NOTE | 2020-02-01 09:27 | Discharge Summary ---
Discharge Summary (SDC) - Discharge Final Diagnosis: Right ulnar neuropathy Date of Surgery: 02/01/20 Discharge Date: 02/01/20 Condition: Good Treatment or Instructions: Schedule Follow Up w/ Dr. Regulo Hayward @ [facility] to be seen in 10-14 days or as scheduled [place]: [place]: [place]: May remove dressing on postop day #3, keep incision covered and dry. Ice and elevate May begin finger range of motion attempting to make full fist. Stool softener of choice when on pain medication. USE OF DIXE-EDE-FXVBYOR IBUPROFEN: Ibuprofen (Advil, Nuprin, Medipren, Motrin IB) is a medication for fever and pain control. In addition, it has anti- inflammatory effects which may be beneficial, especially in the treatment of injuries. It's best to take ibuprofen with food. Persons with ulcer disease or allergy to aspirin should notify their physician of this before taking ibuprofen. Ibuprofen can be given every four to six hours, for a total of four doses daily. Age Pain or fever dose Antiinflammatory dose 6-8 yr 200 mg (1 tab) 200 mg (1 tab) 9-11 yr 200 mg (1 tab) 200-400 mg (1-2 tab) 11-14 yr 200-400 mg (1-2 tab) 400 mg (2 tab) 15-adult 400 mg (2 tab) 600 mg (3 tab) ORAL NARCOTIC MEDICATION: You have been given a prescription for pain control. This medication is a narcotic. It's best taken with food, as nausea can result if taken on an empty stomach. Don't operate machinery or drive within six hours of taking this medication. Do not combine this medicine with alcohol, or with any medication which can cause sedation (such as cold tablets or sleeping pills) unless you get permission from the physician. Narcotics tend to cause constipation. If possible, drink plenty of fluids and eat a diet high in fiber and fruits. Please be aware that prescription narcotics also have the potential for abuse. People become addicted to these medications because of the general sense of wellbeing that they induce. This feeling along with a significant reduction in tension, anxiety, and aggression provides a stimulating seductive quality to these drugs. Once your pain is under control, we encourage you to discard your unused narcotics. Prescriptions: Oxycodone HCl/Acetaminophen [Percocet 5-325 mg Tablet] 1 tab PO Q6 PRN #25 tab PRN Reason: Referrals: HALLE ROWE MD [Primary Care Provider] - Discharge Diet: As Tolerated Respiratory Treatments at Home: Deep Breathing/Coughing, Incentive Spirometer Discharge Activity: No Driving, No Lifting Over 10 Pounds, No Lifting/Push/Pulling Report the Following to Your Physician Immediately: Fever over 101 Degrees, Unusual Bleeding, Redness, Swelling, Warmth, Increased Soreness
--- NOTE | 2020-02-01 09:31 | EKG REPORT ---
SEVERITY:- NORMAL ECG - SINUS RHYTHM : Confirmed by: Shruthi Mijares MD 01-Feb-2020 09:30:52
[2020-02-01] MEDS ORDERED: OXYCODONE-ACETAMINOPHEN 5-325 MG TABLET ONE (09:43)
[2020-02-01 11:56] VITALS: BP 151/96
== END 2020-02-01 11:00 | disposition home or self-care (01) ==
LOC: OROUT 05:28
PROVIDERS: ATTEND Orthopaedic Surgery
DX: G56.21 Lesion of ulnar nerve, right upper limb (principal); M79.7 Fibromyalgia; G47.33 Obstructive sleep apnea (adult) (pediatric); F17.210 Nicotine dependence, cigarettes, uncomplicated; E66.01 Morbid (severe) obesity due to excess calories; D64.9 Anemia, unspecified; Z03.818 Encounter for observation for suspected exposure to other biological agents ruled out
CPT/HCPCS: 36415; 85025; 87635; 80048; 71045; 93005; 93010; 64718; 64721; 64719; J2250; J3490; J0690; J3010; J2704; C9803; J1100; J2405; J2710